=== PATIENT | male | born 1950 | race Caucasian/White ===

== ENCOUNTER 2018-07-04 06:24 | Day surgery (SDC) | payer MEDICARE, MEDICAID ==
[~2018-07-04] VITALS: Ht 180.3 cm; Wt 95.2 kg
[2018-07-04] VITALS (11 sets, daily range): BP systolic 128–182; BP diastolic 51–96
[2018-07-04] MEDS ORDERED: normal saline 1000ml 1,000 ML IV SCH ×2 (06:50→07:40)
[2018-07-04] MEDS ORDERED: sod bicarbonate 150mEq in D5W 1,150 ML IV ONE (06:50)
[2018-07-04] MEDS ORDERED: diphenhydrAMINE 25mg capsule PO PRN (06:50)
[2018-07-04 07:32] LABS: BASOPHILS % (AUTO) 0.8 % (0-1); EOSINOPHILS # (AUTO) 0.1 X10'3 (0-0.9); EOSINOPHILS % (AUTO) 2.2 % (0-6); LYMPHOCYTES # (AUTO) 1.3 X10'3 (1.1-4.8); LYMPHOCYTES % (AUTO) 25.2 % (21-51); MEAN CORPUSCULAR HGB CONC 33.7 % (33.0-36.5); MEAN CORPUSCULAR VOLUME 86.2 FL (78-98); MEAN PLATELET VOLUME 8.6 FL (7.4-10.4); MONOCYTES # (AUTO) 0.5 X10'3 (0-0.9); NEUTROPHILS # (AUTO) 3.2 X10'3 (1.8-7.7); NEUTROPHILS % (AUTO) 62.8 % (42-75); PRE OP HEMATOCRIT 43.8 % (42.0-52.0); PRE OP HEMOGLOBIN 14.8 g/dL (14.0-17.9); PRE OP PLATELET COUNT 200 X10'3 (140-440); RED BLOOD COUNT 5.08 X10'6 (4.70-6.10); RED CELL DISTRIBUTION WIDTH 13.9 % (11.5-14.5)
[2018-07-04 07:40] LABS: ANION GAP 9 (8-16); BLOOD UREA NITROGEN 18 MG/DL (7-18); BUN/CREATININE RATIO 17.3 (5.4-32.0); CALCIUM 9.3 MG/DL (8.5-10.1); CHLORIDE 102 MMOL/L (99-107); CREATININE 1.04 MG/DL (0.60-1.10); GLUCOSE 121 MG/DL (70-104); MAGNESIUM 1.8 MG/DL (1.5-2.4); POTASSIUM 4.1 MMOL/L (3.5-5.1); SODIUM 141 MMOL/L (135-145); TOTAL CARBON DIOXIDE 29.7 MMOL/L (24-32); eGFR 71 ML/MIN
[2018-07-04] MEDS ORDERED: midazolam 2 mg/2 ml injection ONE ×2 (07:40→08:43)
[2018-07-04] MEDS ORDERED: fentaNYL/PF 50MCG/1 ML 2ML syringe ONE ×2 (07:40→08:50)
[2018-07-04] MEDS ORDERED: nitroGLYCERIN-Tridil 50MG/D5W 0 ML IV ONE (07:40)
[2018-07-04] MEDS ORDERED: iohexol 350 MG/ML 50ML vial IV ONE (07:41)
[2018-07-04] MEDS ORDERED: LIDOcaine 1% (10mg/ml)w/preservative injection 20ml MDV ONE (07:41)
[2018-07-04] MEDS ORDERED: iohexol 350MG/ML 100ml bottle IV ONE ×2 (07:41→08:25)
[2018-07-04] MEDS ORDERED: CARSR60C PO (07:43)
[2018-07-04] MEDS ORDERED: OMEP40CA37 PO (07:43)
[2018-07-04] MEDS ORDERED: NITR0.4T51 SL (07:43)
[2018-07-04] MEDS ORDERED: GEMF600T4 PO (07:43)
[2018-07-04 07:44] LABS: PROTHROMBIN TIME 9.7 SECONDS (9.0-12.0)
[2018-07-04] MEDS ORDERED: heparin 1,000unit/ml 10ml vial 10 ML ONE (08:24)
[2018-07-04] MEDS ORDERED: nitroGLYCERIN-Tridil 50MG/D5W 250 ML IV ONE (08:26)
[2018-07-04] MEDS ORDERED: nitroGLYCERIN 0.4mg SUBLingual tab SL ONE (08:50)
[2018-07-04] MEDS ORDERED: clopidogrel 300mg tablet ONE (08:59)
[2018-07-04] MEDS ORDERED: sod bicarbonate 150mEq in D5W 1,150 ML IV SCH (09:40)
[2018-07-04] MEDS ORDERED: ketorolac tromethamine 15mg/ml inj. IV ONE (09:55)
== END 2018-07-04 12:37 | disposition home or self-care (01) ==
LOC: SSTAY O 06:24
PROVIDERS: ATTEND Internal Medicine Cardiovascular Disease
DX: I25.118 Atherosclerotic heart disease of native coronary artery with other forms of angina pectoris (principal); F17.210 Nicotine dependence, cigarettes, uncomplicated; G89.29 Other chronic pain; F10.10 Alcohol abuse, uncomplicated; I11.0 Hypertensive heart disease with heart failure; I50.9 Heart failure, unspecified; Z79.899 Other long term (current) drug therapy; Z98.890 Other specified postprocedural states
CPT/HCPCS: 36415; 80048; 83735; 85025; 85610; 93005; 93458; 99152; 99153; C1760; C1874; C9600; J1644; J1885; J2001; J2250; J3010; J7030; Q0163; Q9967; A4620; C1725; C1769; C1894; J3490